=== PATIENT | male | born 1985 | race Caucasian/White ===

== ENCOUNTER 2021-01-16 17:00 | Emergency (ER) | payer SELFPAY ==
[2021-01-16 17:31] LABS: Urine Blood Negative (Negative); Urine Glucose Negative (Negative); Urine Protein 1+ (Negative); Urine Specific Gravity >=1.030 (1.005-1.030); Urine pH 5.5 (5.0-7.0)
[2021-01-16 17:48] LABS: Calcium Oxalate Crystals- Ur FEW (NONE SEEN); Urine Bacteria <20 /HPF (NONE SEEN); Urine Mucus 1+ /HPF (NONE SEEN)
--- NOTE | 2021-01-16 21:11 | ER ---
Nurse's Notes [facility] Name: Presley Deshpande Age: 35 yrs Sex: Male : 1985 Arrival Date: 01/16/2021 Time: 17:04 Bed 10 Private MD: Diagnosis: Dysuria Presentation: 01/16 17:24 Chief complaint: Patient states: i got an intense burning whenever i piss. just started tw2 today. Coronavirus screen: At this time, the client does not indicate any symptoms associated with coronavirus-19. Ebola Screen: Patient denies travel to an Ebola-affected area in the 21 days before illness onset. 17:24 Method Of Arrival: Ambulatory tw2 17:27 Initial Sepsis Screen: Does the patient meet any 2 criteria? No. Patient's initial tw2 sepsis screen is negative. Does the patient have a suspected source of infection? No. Patient's initial sepsis screen is negative. Risk Assessment: Do you want to hurt yourself or someone else? Patient reports no desire to harm self or others. Onset of symptoms was January 16, 2021. 17:27 Acuity: MELL 3 tw2 Triage Assessment: 17:25 General: Appears in no apparent distress. Behavior is calm, cooperative, appropriate tw2 for age. Pain: Complains of pain in burning with urination. Historical: - Allergies: 17:25 No Known Allergies; tw2 - Home Meds: 17:25 None [Active]; tw2 - PMHx: 17:25 None; tw2 - PSHx: 17:25 None; tw2 - Immunization history:: Client reports having NOT received the Covid vaccine. - Social history:: Smoking status: Patient reports the use of cigarette tobacco products, smokes one-half pack cigarettes per day, Patient uses alcohol, on a daily basis. street drugs, cocaine, daily. Screenin:31 Abuse screen: Denies threats or abuse. Denies injuries from another. Nutritional ld1 screening: No deficits noted. On. Tuberculosis screening: No symptoms or risk factors identified. Fall Risk None identified. Assessment: 20:31 General: Appears in no apparent distress. comfortable, Behavior is calm, cooperative, ld1 appropriate for age. Pain: Denies pain. Neuro: Level of Consciousness is awake, alert, obeys commands, Oriented to person, place, time, situation, Appropriate for age. Cardiovascular: Capillary refill < 3 seconds Patient's skin is warm and dry. Respiratory: Airway is patent Respiratory effort is even, unlabored, Respiratory pattern is regular, symmetrical. GI: No signs and/or symptoms were reported involving the gastrointestinal system. : Reports burning with urination. EENT: No signs and/or symptoms were reported regarding the EENT system. Derm: No signs and/or symptoms reported regarding the dermatologic system. Musculoskeletal: No signs and/or symptoms reported regarding the musculoskeletal system. Vital Signs: 17:26 BP 135 / 89; Pulse 81; Resp 18; Temp 98.3(TE); Pulse Ox 100% on R/A; Weight 86.18 kg tw2 (R); Height 6 ft. 0 in. (182.88 cm); Pain 8/10; 20:31 BP 129 / 82; Pulse 84; Resp 18; Pulse Ox 100% on R/A; ld1 17:26 Body Mass Index 25.77 (86.18 kg, 182.88 cm) tw2 ED Course: 17:04 Patient arrived in ED. am2 17:25 Arm band placed on. tw2 17:27 Triage completed. tw2 20:20 Mika Carty PA is PHCP. [facility] 20:20 Bony Barahona MD is Attending Physician. [facility] 20:31 Patient has correct armband on for positive identification. Placed in gown. Bed in low ld1 position. Call light in reach. Side rails up X2. Pulse ox on. NIBP on. Door closed. Noise minimized. Warm blanket given. 20:31 No provider procedures requiring assistance completed. ld1 21:22 Patient did not have IV access during this emergency room visit. ld1 Administered Medications: 21:21 Drug: Rocephin (cefTRIAXone) 250 mg Route: IM; Site: right deltoid; ld1 21:21 Follow up: Response: No adverse reaction ld1 21:21 Drug: AZITHromycin 1 grams Route: PO; ld1 21:21 Follow up: Response: No adverse reaction ld1 Outcome: 21:10 Discharge ordered by . alejandro 21:22 Discharged to home ambulatory. ld1 21:22 Condition: stable 21:22 Discharge instructions given to patient, Instructed on discharge instructions, follow up and referral plans. safe sex practices, Demonstrated understanding of instructions, follow-up care. 21:22 Patient left the ED. ld1 Signatures: Mika Carty PA PA jmm Wise, Tara, RN RN 2 Juanita Farmer Deanna 3 Yulisa Ramachandran RN RN ld1 Corrections: (The following items were deleted from the chart) 18:04 17:51 Inserted saline lock: 20 gauge in left antecubital area, using aseptic technique. 3 Blood collected. [facility] 18:04 17:51 Initial lab(s) drawn, by wa, sent to lab. EKG done, by ED staff, reviewed by 3 Dagoberto Schroeder MD 3
--- NOTE | 2021-01-16 21:11 | EDPHYS ---
Physician Documentation [facility] Name: Presley Deshpande Age: 35 yrs Sex: Male : 1985 Arrival Date: 01/16/2021 Time: 17:04 Bed 10 Private MD: [place] Physician Bony Barahona HPI: 01/16 21:09 This 35 yrs old Male presents to ER via Ambulatory with complaints of Pain jmm With Urination. 21:09 Onset: The symptoms/episode began/occurred gradually. Modifying factors: The symptoms jmm are alleviated by nothing, the symptoms are aggravated by urinating. Associated signs and symptoms: Pertinent negatives: fever. The patient has not experienced similar symptoms in the past. Historical: - Allergies: 17:25 No Known Allergies; tw2 - Home Meds: 17:25 None [Active]; tw2 - PMHx: 17:25 None; tw2 - PSHx: 17:25 None; tw2 - Immunization history:: Client reports having NOT received the Covid vaccine. - Social history:: Smoking status: Patient reports the use of cigarette tobacco products, smokes one-half pack cigarettes per day, Patient uses alcohol, on a daily basis. street drugs, cocaine, daily. ROS: 21:09 Constitutional: Negative for fever, chills, and weight loss, Cardiovascular: Negative jmm for chest pain, palpitations, and edema, Respiratory: Negative for shortness of breath, cough, wheezing, and pleuritic chest pain. 21:09 : Positive for urinary symptoms. 21:09 All other systems are negative. Exam: 21:09 Constitutional: This is a well developed, well nourished patient who is awake, alert, jmm and in no acute distress. Head/Face: atraumatic. Eyes: EOMI, no conjunctival erythema appreciated ENT: Moist Mucus Membranes Neck: Trachea midline, Supple Chest/axilla: Normal chest wall appearance and motion. Cardiovascular: Regular rate and rhythm. No edema appreciated Respiratory: Normal respirations, no respiratory distress appreciated Abdomen/GI: Non distended, soft Back: Normal ROM Skin: General appearance color normal MS/ Extremity: Moves all extremities, no obvious deformities appreciated, no edema noted to the lower extremities Neuro: Awake and alert, normal gait Psych: Behavior is normal, Mood is normal, Patient is cooperative and pleasant Vital Signs: 17:26 BP 135 / 89; Pulse 81; Resp 18; Temp 98.3(TE); Pulse Ox 100% on R/A; Weight 86.18 kg tw2 (R); Height 6 ft. 0 in. (182.88 cm); Pain 8/10; 20:31 BP 129 / 82; Pulse 84; Resp 18; Pulse Ox 100% on R/A; ld1 17:26 Body Mass Index 25.77 (86.18 kg, 182.88 cm) tw2 MDM: 20:25 Patient medically screened. [facility] 21:10 Data reviewed: vital signs, nurses notes. Counseling: I had a detailed discussion with alejandro the patient and/or guardian regarding: the historical points, exam findings, and any diagnostic results supporting the discharge/admit diagnosis, the need for outpatient follow up. 01/16 17:27 Order name: Urine Microscopic Only; Complete Time: 20:27 tw2 01/16 17:31 Order name: Urine Dipstick-Ancillary; Complete Time: 20:27 [facility] 01/16 17:49 Order name: Urine Culture [facility] 01/16 17:26 Order name: Urine Dipstick-Ancillary (obtain specimen); Complete Time: 17:27 tw2 Administered Medications: 21:21 Drug: Rocephin (cefTRIAXone) 250 mg Route: IM; Site: right deltoid; ld1 21:21 Follow up: Response: No adverse reaction ld1 21:21 Drug: AZITHromycin 1 grams Route: PO; ld1 21:21 Follow up: Response: No adverse reaction ld1 Disposition: 01/17 04:50 Co-signature as Attending Physician, Bony Barahona MD I agree with the assessment and [facility] plan of care. Disposition Summary: 01/16/21 21:10 Discharge Ordered Location: Home jm Condition: Stable [facility] Diagnosis - Dysuria m Followup: m - With: Private Physician - When: 2 - 3 days - Reason: Recheck today's complaints, Continuance of care, Re-evaluation by your physician Discharge Instructions: - Discharge Summary Sheet [facility] - Preventing Sexually Transmitted Infections, Adult [facility] Forms: - Medication Reconciliation Form [facility] - Thank You Letter [facility] - Antibiotic Education m - Prescription Opioid Use jun Signatures: Dispatcher [employer] Bony Stephens MD MD cha Mickail, Joel, PA PA jmm Wise, Tara RN RN tw2 Yulisa Ramachandran, RN RN ld1
[2021-01-16 21:36] VITALS: TEMP 98.3; O2SAT 100
[2021-01-16 21:37] VITALS: BP 129/82
[2021-01-16] MEDS ORDERED: CEFTRIAXONE 250 MG/VIAL ONE (21:38)
[2021-01-16] MEDS ORDERED: AZITHROMYCIN 250 MG TAB ONE (21:38)
[2021-01-16] MEDS ORDERED: WATER FOR INJ,STERILE 10 ML ONE (21:38)
== END 2021-01-16 21:22 | disposition home or self-care (01) ==
LOC: ER 17:00
DX: R30.0 Dysuria (principal); F17.210 Nicotine dependence, cigarettes, uncomplicated
CPT/HCPCS: 81003; 81015; 87086; 87088; 96372; 99283; J0696